=== PATIENT | male | born 1960 | race Caucasian/White ===

== ENCOUNTER 2024-02-22 12:01 | Emergency (ER) | payer BC ==
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
--- NOTE | 2024-02-22 12:36 | RAD REPORT ---
EXAM: Right upper quadrant ultrasound. CLINICAL HISTORY: Abdominal pain COMPARISON: None FINDINGS: A gallstone is not seen. Gallbladder wall not thickened. Biliary tree normal caliber IMPRESSION: No significant abnormalities displayed
--- NOTE | 2024-02-22 12:46 | RAD REPORT ---
EXAMINATION: Stone Protocol CLINICAL INDICATION: Abdominal pain. Right flank pain TECHNIQUE: CT abdomen and pelvis was performed, without IV contrast, as per department protocol. Oral contrast not given. Axial, sagittal and coronal reconstructions were obtained. One or more of the following dose reduction techniques were used: Automated exposure control, adjustment of the mA and k V according to the patient size, and iterative reconstruction. Unless otherwise specified, incidental findings do not require dedicated imaging follow-up. COMPARISON: No prior exam. FINDINGS: The lack of intravenous and oral contrast limits the sensitivity of this exam for evaluation of solid visceral organs, vascular structures, and bowel A renal calculus not seen. No ureteral calculus. A bladder calculus not noted. No hydronephrosis Liver, spleen, pancreas and adrenals grossly normal Several soft tissue structures medial to the spleen. Largest 1.5 cm. No evidence of diverticulitis. Normal appendix. 2.5 cm partially calcified structure anterior to the rectum. Small umbilical hernia. Mild enlargement of the prostate gland. Mild bladder wall thickening IMPRESSION: Negative for a genitourinary calculus 2.5 cm partially calcified structure anterior to the rectum may represent dystrophic calcification in a benign mass. A lymph node is another consideration. If so it probably is benign. Mild bladder wall thickening may be secondary to incomplete distention or cystitis Several soft tissue structures medial to the spleen probably accessory spleens It is recommended that the patient have a follow-up CT abdomen and pelvis in 3 months to reassess the above findings.
[2024-02-22] MEDS ORDERED: MORPHINE 2 MG/ML SYR ONE (12:53)
[2024-02-22] MEDS ORDERED: ONDANSETRON 4 MG/2 ML VIAL ONE (12:53)
[2024-02-22 13:18] LABS: Absolute Basophils 0.1 K/uL (0-0.5); MPV 8.2 fL (7.6-11.3)
[2024-02-22 13:32] LABS: Absolute Lymphocytes (CBC) 0.8 K/uL (0.7-4.9); Basophils % 0.6 % (0-1.3); Eosinophils % 0.4 % (0-4.4); Hematocrit 43.3 % (39.6-49.0); Hemoglobin 15.4 g/dL (13.6-17.9); Lymphocytes % 9.8 % (15.3-44.8); MCH 36.4 pg (27.0-35.0); MCHC 35.5 g/dL (32.0-36.0); MCV 102.6 fL (80-100); Monocytes % 12.8 % (3.3-12.3); Neutrophils % 76.4 % (41.7-73.7); Platelets 135 thou/uL (152-406); RBC Red Blood Cell Count 4.22 M/uL (4.33-5.43)
[2024-02-22 13:35] LABS: Albumin 4.1 g/dL (3.4-5.0); Albumin/Globulin Ratio 0.8 (1.1-1.8); Anion Gap 12.6 mEq/L (5.0-15.0); Bilirubin Total 2.1 mg/dL (0.2-1.0); Globulin 5.4 g/dL (2.3-3.5); Potassium 3.6 mEq/L (3.5-5.1); Protein, Total 9.5 g/dL (6.4-8.2)
[2024-02-22 14:23] LABS: Specific Gravity 1.007 (1.005-1.030); Urine Bilirubin NEGATIVE (Negative); Urine Blood Negative (Negative); Urine Clarity Clear (Clear); Urine Color Light-Yellow (Yellow); Urine Glucose NEGATIVE (Negative); Urine Ketones NEGATIVE (Negative); Urine Microscopic Reflex YN NO UMIC; Urine Nitrite NEGATIVE (Negative); Urine Protein NEGATIVE (Negative); Urine Urobilinogen Normal (Normal)
--- NOTE | 2024-02-22 14:30 | RAD REPORT ---
Procedure: Chest Single View HISTORY: Chest pain COMPARISON: Pleuritic pain FINDINGS: The lungs appear clear of acute infiltrate. No significant pleural effusion noted. The heart is normal size. IMPRESSION: No acute abnormality is displayed.
--- NOTE | 2024-02-22 14:58 | ER ---
Nurse's Notes [facility] Name: Aguila Figueroa Age: 63 yrs Sex: Male : 1960 Arrival Date: 02/22/2024 Time: 12:01 Bed 18 Private MD: Diagnosis: Flank Pain Presentation: 02/21 12:13 Chief complaint: Patient states: Right flank pain that radiates to RLQ abdominal pain. cm10 Pt states that the pain gets worse with deep breaths. Pt reports nausea. Coronavirus screen: Client denies travel out of the [place] in the last 14 days. Ebola Screen: Patient denies travel to an Ebola-affected area in the 21 days before illness onset. No symptoms or risks identified at this time. Initial Sepsis Screen: Does the patient meet any 2 criteria? HR > 90 bpm. Does the patient have a suspected source of infection? No. Patient's initial sepsis screen is negative. Risk Assessment: Do you want to hurt yourself or someone else? Patient reports no desire to harm self or others. Onset of symptoms was February 22, 2024. 12:13 Method Of Arrival: Ambulatory cm10 12:13 Acuity: EMBER 3 cm10 Triage Assessment: 12:17 General: Appears in no apparent distress. uncomfortable, Behavior is calm, cooperative. cm10 Pain: Complains of pain in right flank Pain radiates to right upper quadrant and right lower quadrant Pain currently is 5 out of 10 on a pain scale. at worst was 10 out of 10 on a pain scale. Quality of pain is described as sharp, shooting, Pain began suddenly, Is intermittent. Neuro: No deficits noted. Level of Consciousness is awake, alert, obeys commands, Oriented to person, place, time, situation, Appropriate for age. Respiratory: No deficits noted. Airway is patent Respiratory effort is even, unlabored, Respiratory pattern is regular, symmetrical. 13:00 Respiratory: Reports shortness of breath on exertion the patient has mild shortness of db breath. Historical: - Allergies: 12:16 Sulfa (Sulfonamide Antibiotics); cm10 - Home Meds: 12:16 lisinopril-hydrochlorothiazide 10-12.5 mg oral tablet [Active]; cm10 - PMHx: 12:16 Hypertensive disorder; cm10 - Immunization history:: Adult Immunizations up to date. - Infectious Disease History:: Denies. - Social history:: Smoking status: Patient denies any tobacco usage or history of. - Family history:: not pertinent. - Hospitalizations: : No recent hospitalization is reported. Screenin:29 [facility] ED Fall Risk Assessment (Adult) History of falling in the last 3 months, db including since admission No falls in past 3 months (0 pts) Confusion or Disorientation No (0 pts) Intoxicated or Sedated No (0 pts) Impaired Gait No (0 pts) Mobility Assist Device Used No (0 pt) Altered Elimination No (0 pt) Score/Fall Risk Level 0 - 2 = Low Risk Oriented to surroundings, Maintained a safe environment. Abuse screen: Denies threats or abuse. Denies injuries from another. Nutritional screening: No deficits noted. Tuberculosis screening: No symptoms or risk factors identified. Assessment: 13:00 Reassessment: Patient appears in no apparent distress at this time. Patient and/or db family updated on plan of care and expected duration. Pain level reassessed. Patient is alert, oriented x 3, equal unlabored respirations, skin warm/dry/pink. General: Appears in no apparent distress. comfortable, Behavior is calm, cooperative. Pain: Complains of pain in abdomen and back and right flank. Neuro: Level of Consciousness is awake, alert, obeys commands, Oriented to person, place, time, situation. Cardiovascular: Capillary refill < 3 seconds Rhythm is regular. Respiratory: Airway is patent Respiratory effort is even, unlabored, Respiratory pattern is regular, symmetrical, Breath sounds are clear. GI: Abdomen is flat. :. 13:48 Reassessment: PATIENT AMBULATORY TO RESTROOM. db 15:00 Reassessment: Patient appears in no apparent distress at this time. Patient and/or db family updated on plan of care and expected duration. Pain level reassessed. Patient is alert, oriented x 3, equal unlabored respirations, skin warm/dry/pink. 15:08 Reassessment: Patient appears in no apparent distress at this time. Patient and/or db family updated on plan of care and expected duration. Pain level reassessed. Patient is alert, oriented x 3, equal unlabored respirations, skin warm/dry/pink. Patient states feeling better. Patient states symptoms have improved. Vital Signs: 12:13 BP 178 / 98; Pulse 92; Resp 18; Temp 97.3; Pulse Ox 99% ; Weight 81.65 kg; Height 5 ft. cm10 9 in. ; Pain 5/10; 13:00 BP 156 / 88; Pulse 93; Resp 18; Pulse Ox 97% ; db 14:00 BP 155 / 95; Pulse 90; Resp 18; Pulse Ox 98% on R/A; db 15:00 BP 132 / 84; Pulse 89; Resp 18; Pulse Ox 98% on R/A; db 12:13 Body Mass Index 26.58 (81.65 kg, 175.26 cm) cm10 12:13 Pain Scale: Adult cm10 ED Course: 12:04 Patient arrived in ED. im 12:13 Leodan Marcos MD is Attending Physician. rn 12:16 Triage completed. cm10 12:18 Arm band placed on right wrist. Patient placed in waiting room. cm10 12:30 US Abdomen Limited In Process Unspecified. EDMS 12:34 CT Stone Protocol In Process Unspecified. EDMS 12:45 Inserted saline lock: 20 gauge in right antecubital area, using aseptic technique. db 13:27 Pricilla Sosa, RN is Primary Nurse. db 13:29 Patient has correct armband on for positive identification. Bed in low position. Call db light in reach. Side rails up X 1. Pulse ox on. NIBP on. Pillow given. 13:55 Urine collected: clean catch specimen. db 14:21 XRAY Chest (1 view) In Process Unspecified. EDMS 15:15 Provided Education on: DISCHARGE. db 15:15 No provider procedures requiring assistance completed. IV discontinued, intact, db bleeding controlled, No redness/swelling at site. Administered Medications: 13:03 Drug: morphine IVP or IV 2 mg IVP once over 4 mins Route: IVP; Infused Over: 4 mins; rs5 Site: right antecubital; 15:16 Follow up: Response: No adverse reaction db 13:03 Drug: Ondansetron IVP 4 mg IVP once; over 2 minutes Route: IVP; Site: right antecubital;rs5 15:16 Follow up: Response: No adverse reaction db Medication: 13:29 VIS not applicable for this client. db Outcome: 14:57 Discharge ordered by . rn 15:15 Discharged to home ambulatory, with family, db 15:15 Condition: stable 15:15 Discharge instructions given to patient, family, Instructed on discharge instructions, follow up and referral plans. 15:17 Patient left the ED. db Signatures: Dispatcher [employer] EDLeodan Hill MD MD rn Benton, Danielle RN RN Bubba Coombs RN RN rs5 Perlita Oviedo Clarissa, RN RN cm10
--- NOTE | 2024-02-22 14:59 | EDPHYS ---
Physician Documentation [facility] Name: Aguila Figueroa Age: 63 yrs Sex: Male : 1960 Arrival Date: 02/22/2024 Time: 12:01 Bed 18 Private MD: ED Physician Leodan Marcos HPI: 02/21 14:40 This 63 yrs old Male presents to ER via Ambulatory with complaints of Flank Pain. rn 14:40 The patient has shortness of breath at rest, with light activity. rn 14:41 Onset: The symptoms/episode began/occurred 2 day(s) ago. Duration: The symptoms are rn intermittent. The patient's shortness of breath is aggravated by deep breath. Associated signs and symptoms: Pertinent negatives: chest pain, non-productive cough, productive cough, fever, hemoptysis, loss of consciousness, vomiting. Severity of symptoms: At their worst the symptoms were mild in the emergency department the symptoms are unchanged. The patient has not experienced similar symptoms in the past. Patient reports right flank pain that is worse with deep breath and movement. No fever or chills. No cough. No hemoptysis. No chest pain. No abdominal pain. No history of kidney stones or UTI. No trauma. No history of DVT or PE, no DVT or PE risk factors.. Historical: - Allergies: 12:16 Sulfa (Sulfonamide Antibiotics); cm10 - Home Meds: 12:16 lisinopril-hydrochlorothiazide 10-12.5 mg oral tablet [Active]; cm10 - PMHx: 12:16 Hypertensive disorder; cm10 - Immunization history:: Adult Immunizations up to date. - Infectious Disease History:: Denies. - Social history:: Smoking status: Patient denies any tobacco usage or history of. - Family history:: not pertinent. - Hospitalizations: : No recent hospitalization is reported. ROS: 14:41 Constitutional: Negative for fever, chills, and weight loss, Eyes: Negative for injury, rn pain, redness, and discharge, Cardiovascular: Negative for chest pain, palpitations, and edema, Respiratory: Negative for shortness of breath, cough, wheezing Abdomen/GI: Negative for abdominal pain, nausea, vomiting, diarrhea, and constipation Back: Positive for right flank pain MS/Extremity: Negative for injury and deformity, Skin: Negative for injury, rash, and discoloration, Neuro: Negative for headache, weakness, numbness, tingling, and seizure, Exam: 14:41 Constitutional: This is a well developed, well nourished patient who is awake, alert, rn and in no acute distress. Cardiovascular: Regular rate and rhythm. No pulse deficits. Respiratory: No increased work of breathing, no retractions or nasal flaring. Abdomen/GI: Soft, non-tender Back: No spinal tenderness. No costovertebral tenderness. Full range of motion. MS/ Extremity: Pulses equal, no cyanosis. Neuro: Awake and alert, GCS 15 Vital Signs: 12:13 BP 178 / 98; Pulse 92; Resp 18; Temp 97.3; Pulse Ox 99% ; Weight 81.65 kg; Height 5 ft. cm10 9 in. ; Pain 5/10; 13:00 BP 156 / 88; Pulse 93; Resp 18; Pulse Ox 97% ; db 14:00 BP 155 / 95; Pulse 90; Resp 18; Pulse Ox 98% on R/A; db 15:00 BP 132 / 84; Pulse 89; Resp 18; Pulse Ox 98% on R/A; db 12:13 Body Mass Index 26.58 (81.65 kg, 175.26 cm) cm10 12:13 Pain Scale: Adult cm10 MDM: 12:13 Medical Screening Exam initiated rn 14:47 Differential diagnosis: pneumonia, Pneumothorax pulmonary edema. Data reviewed: vital rn signs, nurses notes, lab test result(s), radiologic studies, plain films, and as a result, I will discharge patient. Counseling: I had a detailed discussion with the patient and/or guardian regarding the historical points, exam findings, and any diagnostic results supporting the discharge/admit diagnosis, lab results, radiology results, the need for outpatient follow up, to return to the emergency department if symptoms worsen or persist or if there are any questions or concerns that arise at home. Response to treatment: the patient's symptoms have mildly improved after treatment, and as a result, I will discharge patient. Special discussion: Based on the patient's history, exam, and Dx evaluation, there is no indication for emergent intervention or inpatient Tx. It is understood by the patient/guardian that if the Sx's persist or worsen they need to return immediately for re-evaluation. I discussed with the patient/guardian in detail that at this point there is no indication for admission to the hospital. It is understood, however, that if the symptoms persist or worsen the patient needs to return immediately for re-evaluation. ED course: No acute findings on workup. CXR clear. CT stone protocol negative. No oxygen requirement, not tachycardic, no DVT/PE risk factors that need emergent PE protocol. . 02/21 12:17 Order name: CBC with Diff; Complete Time: 14:11 rn 02/21 12:17 Order name: CMP; Complete Time: 14:11 rn 02/21 12:17 Order name: Lipase; Complete Time: 14:11 rn 02/21 12:17 Order name: Urinalysis w/ reflexes; Complete Time: 14:25 rn 02/21 12:17 Order name: XRAY Chest (1 view); Complete Time: 14:34 rn 02/21 12:17 Order name: CT Stone Protocol; Complete Time: 13:10 rn 02/21 12:17 Order name: US Abdomen Limited; Complete Time: 13:10 rn 02/21 12:17 Order name: IV Saline Lock; Complete Time: 13:03 rn 02/21 12:17 Order name: Labs collected and sent; Complete Time: 13:03 rn Administered Medications: 13:03 Drug: morphine IVP or IV 2 mg IVP once over 4 mins Route: IVP; Infused Over: 4 mins; rs5 Site: right antecubital; 15:16 Follow up: Response: No adverse reaction db 13:03 Drug: Ondansetron IVP 4 mg IVP once; over 2 minutes Route: IVP; Site: right antecubital;rs5 15:16 Follow up: Response: No adverse reaction db Disposition Summary: 02/22/24 14:57 Discharge Ordered Notes: Location: Home rn Problem: new rn Symptoms: are unchanged rn Condition: Stable rn Diagnosis - Flank Pain rn Followup: rn - With: Private Physician - When: As needed - Reason: Recheck today's complaints, Re-evaluation by your physician Discharge Instructions: - Discharge Summary Sheet rn - Flank Pain, Adult rn Forms: - Medication Reconciliation Form rn - Antibiotic manager e learning - Prescription Opioid Use rn - Patient Portal Instructions rn - Leadership Thank You Letter rn Signatures: Dispatcher [employer] Leodan Sutton MD MD rn Sotelo, Ricky, RN RN rs5 Rachel Ledesma RN RN cm10 Pricilla Sosa RN db
[2024-02-22 19:53] VITALS: TEMP 97.3
[2024-02-22 19:55] VITALS: O2SAT 98
[2024-02-22 19:56] VITALS: BP 132/84
== END 2024-02-22 15:17 | disposition home or self-care (01) ==
LOC: ER 12:01
DX: R10.9 Unspecified abdominal pain (principal); I10 Essential (primary) hypertension
CPT/HCPCS: 85025; 36415; 81003; 83690; 80053; 76377; 74176; 71045; 76705; 96375; 96374; 99284; J2270; J2405